=== PATIENT | female | born 1950 | race Caucasian/White ===

== ENCOUNTER 2018-01-03 08:44 | Outpatient (CLI) | payer MEDICARE | END 2018-01-03 23:59 | disposition short-term general hospital (02) | LOC: EMS 08:44 | PROVIDERS: ATTEND Surgery | DX: R53.1 Weakness (principal); R47.9 Unspecified speech disturbances; M79.89 Other specified soft tissue disorders | CPT/HCPCS: A0170; A0425; A0427 ==

== ENCOUNTER 2018-05-08 05:41 | Outpatient (CLI) | payer MEDICARE | END 2018-05-08 05:42 | disposition short-term general hospital (02) | LOC: EMS 05:41 | PROVIDERS: ATTEND Surgery | DX: Z03.89 Encounter for observation for other suspected diseases and conditions ruled out (principal); Z79.01 Long term (current) use of anticoagulants; W06.XXXA Fall from bed, initial encounter; Y92.003 Bedroom of unspecified non-institutional (private) residence as the place of occurrence of the external cause | CPT/HCPCS: A0425; A0429 ==

== ENCOUNTER 2018-05-18 12:05 | Outpatient (CLI) | payer MEDICARE ==
[2018-05-18 18:03] LABS: CALCIUM 9.3 mg/dL (8.5-10.3); CREATININE 1.3 mg/dL (0.4-1.0)
== END 2018-05-18 12:06 | disposition home or self-care (01) ==
LOC: LAB.R 12:05
PROVIDERS: ATTEND Family Medicine
DX: E11.9 Type 2 diabetes mellitus without complications (principal)
CPT/HCPCS: 80048

== ENCOUNTER 2018-06-16 08:00 | Outpatient (CLI) | payer MEDICARE ==
[2018-06-16 17:19] LABS: BILIRUBIN,URINE NEGATIVE (NEGATIVE); GLUCOSE, URINE (UA) NEGATIVE (NEGATIVE); KETONES,URINE (UA) NEGATIVE (NEGATIVE); LEUKOCYTE ESTERASE, URINE SMALL (NEGATIVE); NITRITE,URINE NEGATIVE (NEGATIVE); OCCULT BLOOD,URINE TRACE-LYSE (NEGATIVE); PH,URINE 5.5 PH (5.0-7.5); PROTEIN,URINE 30 mg/dL (NEGATIVE); UROBILINOGEN,URINE 0.2 (NORMAL) E.U./dL (NORMAL)
[2018-06-16 17:54] LABS: CLARITY,URINE CLOUDY (CLEAR)
[2018-06-16 18:03] LABS: BACTERIA,URINE Many /HPF (None Seen); SQUAMOUS EPITHELIAL CELL,UR NONE SEEN (<= Few); WBC CLUMPS,URINE PRESENT
== END 2018-06-16 23:59 | disposition home or self-care (01) ==
LOC: LAB.R 08:00
PROVIDERS: ATTEND Family Medicine
DX: N39.0 Urinary tract infection, site not specified (principal)
CPT/HCPCS: 81001; 81003; 87077; 87086; 87181

== ENCOUNTER 2018-06-22 08:00 | Outpatient (CLI) | payer MEDICARE | END 2018-06-22 23:59 | disposition home or self-care (01) | LOC: LAB.R 08:00 | PROVIDERS: ATTEND Physician Assistant | DX: E87.5 Hyperkalemia (principal) | CPT/HCPCS: 84132 ==

== ENCOUNTER 2018-07-08 10:59 | Outpatient (CLI) | payer MEDICARE | END 2018-07-08 11:00 | disposition EMS.NT | LOC: EMS 10:59 | PROVIDERS: ATTEND Surgery | DX: R73.9 Hyperglycemia, unspecified (principal) ==

== ENCOUNTER 2018-08-11 08:00 | Outpatient (CLI) | payer MEDICARE ==
[2018-08-11 17:38] LABS: BILIRUBIN,URINE NEGATIVE (NEGATIVE); GLUCOSE, URINE (UA) NEGATIVE (NEGATIVE); KETONES,URINE (UA) NEGATIVE (NEGATIVE); LEUKOCYTE ESTERASE, URINE SMALL (NEGATIVE); NITRITE,URINE POSITIVE (NEGATIVE); OCCULT BLOOD,URINE MODERATE (NEGATIVE); PH,URINE 5.5 PH (5.0-7.5); PROTEIN,URINE NEGATIVE (NEGATIVE); UROBILINOGEN,URINE 0.2 (NORMAL) E.U./dL (NORMAL)
[2018-08-11 17:45] LABS: CLARITY,URINE CLEAR (CLEAR)
[2018-08-11 17:55] LABS: BACTERIA,URINE Rare /HPF (None Seen); CASTS, URINE >50 Hyaline Casts /LPF; SQUAMOUS EPITHELIAL CELL,UR FEW Squamous (<= Few)
== END 2018-08-11 23:59 | disposition home or self-care (01) ==
LOC: LAB.R 08:00
PROVIDERS: ATTEND Family Medicine
DX: N39.0 Urinary tract infection, site not specified (principal)
CPT/HCPCS: 81001; 81003; 87077; 87086; 87181

== ENCOUNTER 2018-09-06 15:30 | Outpatient (CLI) | payer MEDICARE ==
[2018-09-06 18:00] LABS: HGB - HEMOGLOBIN 10.3 g/dL (12.0-16.0); MEAN CORPUSCULAR HEMOGLOBIN 25.8 pg (27.0-31.0); MEAN CORPUSCULAR HGB CONC 31.8 g/dL (32.0-36.0); MEAN CORPUSCULAR VOLUME 81.1 fL (81.0-99.0); MEAN PLATELET VOLUME 8.7 fL (7.9-10.8); WHITE BLOOD COUNT 7.1 x10^3/uL (4.8-10.8)
[2018-09-06 18:07] LABS: PT - PROTHROMBIN TIME 94.4 secs (9.9-12.6)
[2018-09-06 18:21] LABS: INR 8.5 (0.8-1.2)
== END 2018-09-06 23:59 | disposition home or self-care (01) ==
LOC: LAB.R 15:30
PROVIDERS: ATTEND Family Medicine
DX: I48.2 Chronic atrial fibrillation (principal)
CPT/HCPCS: 85027; 85610

== ENCOUNTER 2018-10-25 01:10 | Outpatient (CLI) | payer MEDICARE | END 2018-10-25 01:11 | disposition EMS.NT | LOC: EMS 01:10 | PROVIDERS: ATTEND Surgery | DX: Z03.89 Encounter for observation for other suspected diseases and conditions ruled out (principal) ==

== ENCOUNTER 2018-11-19 08:00 | Outpatient (CLI) | payer MEDICARE ==
[2018-11-19 16:03] LABS: ALBUMIN 3.5 g/dL (3.2-5.5); CALCIUM 9.2 mg/dL (8.5-10.3); CREATININE 1.6 mg/dL (0.4-1.0); PHOSPHORUS 3.9 mg/dL (2.5-4.6)
== END 2018-11-19 23:59 | disposition home or self-care (01) ==
LOC: LAB.R 08:00
PROVIDERS: ATTEND Family Medicine
DX: N17.9 Acute kidney failure, unspecified (principal)
CPT/HCPCS: 80069

== ENCOUNTER 2019-01-19 12:00 | Outpatient (CLI) | payer MEDICARE ==
[2019-01-19 17:40] LABS: INR 4.1 (0.8-1.2); PT - PROTHROMBIN TIME 45.8 secs (9.9-12.6)
== END 2019-01-19 23:59 | disposition home or self-care (01) ==
LOC: LAB.R 12:00
PROVIDERS: ATTEND Physician Assistant
DX: Z51.81 Encounter for therapeutic drug level monitoring (principal)
CPT/HCPCS: 85610

== ENCOUNTER 2019-02-15 13:30 | Outpatient (CLI) | payer MEDICARE ==
[2019-02-15 17:54] LABS: BILIRUBIN,URINE NEGATIVE (NEGATIVE); GLUCOSE, URINE (UA) NEGATIVE (NEGATIVE); KETONES,URINE (UA) NEGATIVE (NEGATIVE); LEUKOCYTE ESTERASE, URINE SMALL (NEGATIVE); NITRITE,URINE NEGATIVE (NEGATIVE); OCCULT BLOOD,URINE SMALL (NEGATIVE); PROTEIN,URINE NEGATIVE (NEGATIVE); UROBILINOGEN,URINE 0.2 (NORMAL) E.U./dL (NORMAL)
[2019-02-15 17:55] LABS: CLARITY,URINE CLEAR (CLEAR)
[2019-02-15 18:08] LABS: AMORPHOUS SEDIMENT,UR Few /LPF; BACTERIA,URINE None Seen /HPF (None Seen); RBC,URINE None Seen /HPF (0-5); SQUAMOUS EPITHELIAL CELL,UR FEW Squamous (<= Few)
[2019-02-15 18:09] LABS: CASTS, URINE 0-2 Hyaline Casts /LPF
== END 2019-02-15 23:59 | disposition home or self-care (01) ==
LOC: LAB.R 13:30
PROVIDERS: ATTEND Physician Assistant
DX: N39.0 Urinary tract infection, site not specified (principal)
CPT/HCPCS: 81001; 81003; 87077; 87086; 87181

== ENCOUNTER 2019-03-08 09:36 | Outpatient (CLI) | payer MEDICARE | END 2019-03-08 09:37 | disposition EMS.NT | LOC: EMS 09:36 | PROVIDERS: ATTEND Surgery | DX: Z03.89 Encounter for observation for other suspected diseases and conditions ruled out (principal) ==

== ENCOUNTER 2019-05-31 08:46 | Outpatient (CLI) | payer MEDICARE | END 2019-05-31 08:47 | disposition short-term general hospital (02) | LOC: EMS 08:46 | PROVIDERS: ATTEND Surgery | DX: S09.90XA Unspecified injury of head, initial encounter (principal); W05.0XXA Fall from non-moving wheelchair, initial encounter; Y93.K9 Activity, other involving animal care; Y92.009 Unspecified place in unspecified non-institutional (private) residence as the place of occurrence of the external cause; Z79.01 Long term (current) use of anticoagulants | CPT/HCPCS: A0425; A0429 ==

== ENCOUNTER 2019-07-27 02:33 | Outpatient (CLI) | payer MEDICARE | END 2019-07-27 02:34 | disposition critical access hospital (66) | LOC: EMS 02:33 | PROVIDERS: ATTEND Surgery | DX: S01.111A Laceration without foreign body of right eyelid and periocular area, initial encounter (principal); S01.411A Laceration without foreign body of right cheek and temporomandibular area, initial encounter; S01.21XA Laceration without foreign body of nose, initial encounter; W06.XXXA Fall from bed, initial encounter; Y92.003 Bedroom of unspecified non-institutional (private) residence as the place of occurrence of the external cause | CPT/HCPCS: A0425; A0429 ==

== ENCOUNTER 2019-07-27 03:11 | Emergency (ER) | payer MEDICARE ==
[2019-07-27 03:34] LABS: BILIRUBIN,URINE NEGATIVE (NEGATIVE); GLUCOSE, URINE (UA) 250 mg/dL (NEGATIVE); KETONES,URINE (UA) NEGATIVE (NEGATIVE); LEUKOCYTE ESTERASE, URINE LARGE (NEGATIVE); NITRITE,URINE NEGATIVE (NEGATIVE); OCCULT BLOOD,URINE SMALL (NEGATIVE); PROTEIN,URINE TRACE mg/dL (NEGATIVE); UROBILINOGEN,URINE 0.2 (NORMAL) E.U./dL (NORMAL)
[2019-07-27 03:35] LABS: CLARITY,URINE HAZY (CLEAR)
[2019-07-27 03:39] LABS: BASOPHILS % (AUTO) 0.5 %; EOSINOPHILS # (AUTO) 0.2 10^3/uL (0.0-0.7); HGB - HEMOGLOBIN 9.2 g/dL (12.0-16.0); LYMPHOCYTES # (AUTO) 1.3 10^3/uL (1.5-3.5); LYMPHOCYTES % (AUTO) 17.5 %; MEAN CORPUSCULAR HEMOGLOBIN 24.5 pg (27.0-31.0); MEAN CORPUSCULAR HGB CONC 29.5 g/dL (32.0-36.0); MEAN PLATELET VOLUME 10.1 fL (7.9-10.8); MONOCYTES # (AUTO) 0.9 10^3/uL (0.0-1.0); MONOCYTES % (AUTO) 12.4 %; NEUTROPHILS # (AUTO) 4.9 10^3/uL (1.5-6.6); NEUTROPHILS % (AUTO) 66.2 %; PLT - PLATELET COUNT 238 10^3/uL (130-450); RED BLOOD COUNT 3.76 10^6/uL (4.20-5.40); RED CELL DISTRIBUTION WIDTH 15.8 % (12.0-15.0); WHITE BLOOD COUNT 7.4 x10^3/uL (4.8-10.8)
[2019-07-27 03:40] LABS: BACTERIA,URINE Many /HPF (None Seen); RBC,URINE 0-5 /HPF (0-5); SQUAMOUS EPITHELIAL CELL,UR FEW Squamous (<= Few)
[2019-07-27 03:45] LABS: INR 3.3 (0.8-1.2); PT - PROTHROMBIN TIME 34.9 secs (9.9-12.6)
--- NOTE | 2019-07-27 03:49 | ED Physician Documentation ---
PD HPI HEAD INJURY - Stated complaint Stated Complaint: GLF/ HEAD INJ - Chief complaint Chief Complaint: Trauma Hd/Nk - History obtained from History obtained from: Patient, Family, EMS - History of Present Illness Mechanism of head injury: Fell Where head injury occurred: Home Timing - onset: Today Location of injury: Right, Front Quality of pain: Pain, Throbbing Associated symptoms: Other (facial trauma). No: LOC, AMS, Amnesia, Nausea / vomiting, Neck pain, Paresthesias, Seizures, Ear drainage, Nasal drainage Symptoms improve with: Rest Symptoms worsen with: Palpation, Movement Contributing factors: Anticoagulated (fall) Similar symptoms before: Diagnosis Recently seen: Clinic - Additional information Additional information: 69-year-old female who has had a CVA with left lisset-paresis is being taken care of by her in her home. She has a history of congestive heart failure, atrial fibrillation, diabetes on insulin and she is on Coumadin. She does have a Elliott catheter in place and her legs are wrapped and she has a history of cellulitis as well. She was in her bed this evening she rolled over and fell out of the bed and hit her right face on the nightstand. She denies any loss of consciousness with this she denies any neck pain she denies any headache. She does have lacerations to her face and a lot of swelling to the right eye. She is able to see out of the eye the eye is now swollen shut. She denies any recent illness does state that she goes to the wound clinic weekly regarding her legs which are raw. She states they have not started her on antibiotics for the cellulitis. She also states they have not started on antibiotics for urinary tract infection. She is not sure why. The is uncertain why. She has had the Elliott catheter in place for about 6 months and last had the catheter changed out about 2 weeks ago. She last saw her primary care doctor 2 weeks ago for routine check. She is on Coumadin. She has atrial fibrillation. Review of Systems Constitutional: denies: Fever, Myalgias, Fatigue Eyes: denies: Decreased vision Ears: denies: Ear pain Nose: denies: Rhinorrhea / runny nose, Congestion Throat: denies: Sore throat Cardiac: denies: Chest pain / pressure, Palpitations Respiratory: denies: Dyspnea, Cough GI: denies: Abdominal Pain, Nausea, Vomiting Skin: reports: Rash Musculoskeletal: reports: Extremity pain. denies: Neck pain, Back pain Neurologic: reports: Generalized weakness, Focal weakness, Head injury. denies: Difficulty speaking, Syncope, Seizure, Headache, LOC PD PAST MEDICAL HISTORY - Present Medications Home Medications: Ambulatory Orders Medication Instructions Recorded Confirmed Cefdinir 300 mg PO BID #14 capsule 07/27/19 Docusate Sodium 100 mg BID 07/27/19 07/27/19 Fluticasone [Flonase] 2 sprays DAILY 07/27/19 07/27/19 Insulin Lispro 8 units TID 07/27/19 07/27/19 Insulin NPH Human Isophane 50 units BID 07/27/19 07/27/19 [Humulin N] Isosorbide Dinitrate 40 mg DAILY 07/27/19 07/27/19 Lisinopril [Zestril] 40 mg DAILY 07/27/19 07/27/19 Magnesium Oxide [Mag Ox] 2 tab DAILY 07/27/19 07/27/19 Methocarbamol [Robaxin-750] 2 tab TID 07/27/19 07/27/19 Nystatin 5 ml QID 07/27/19 07/27/19 Oxycodone HCl/Acetaminophen 1 tab TID PRN 07/27/19 07/27/19 [Percocet 5-325 mg Tablet] Pramipexole Di-HCl [Mirapex] 1 mg DAILY PM 07/27/19 07/27/19 Salmeterol Xinafoate [Serevent 1 puffs BID 07/27/19 07/27/19 Diskus] Sertraline [Zoloft] 25 mg DAILY 07/27/19 07/27/19 Spironolactone 25 mg DAILY 07/27/19 07/27/19 Triamcinolone 0.5% Cream [Kenalog 1 applic DAILY 07/27/19 07/27/19 0.5% Cream] Warfarin [Coumadin] 2 mg DAILY 07/27/19 07/27/19 amLODIPine [Norvasc] 10 mg DAILY 07/27/19 07/27/19 hydrALAZINE [Apresoline] 25 mg TID 07/27/19 07/27/19 - Allergies Allergies/Adverse Reactions: Allergies Allergy/AdvReac Type Severity Reaction Status Date / Time gabapentin Allergy Edema Verified 07/27/19 04:54 guaifenesin Allergy Unknown Verified 07/27/19 04:54 hydrocodone Allergy Itching Verified 07/27/19 04:54 nortriptyline Allergy Unknown Verified 07/27/19 04:21 NSAIDS (Non-Steroidal Allergy Edema Verified 07/27/19 04:54 Anti-Inflamma Sulfa (Sulfonamide Allergy Respiratory Verified 07/27/19 04:54 Antibiotics) trimethoprim Allergy Respiratory Verified 07/27/19 04:54 zolpidem Allergy Respiratory Verified 07/27/19 04:54 PD ED PE NORMAL - Vitals Vital signs reviewed: Yes (hypertensive ) - General General: Alert and oriented X 3, Well developed/nourished, Other - HEENT HEENT: PERRL, EOMI, Other (There is facial trauma that is evident with a laceration to the lateral aspect of the face at the corner of the right eye there is swelling to the right periorbital tissues swelling the shot. There is tenderness to the cheek and a laceration over the anterior cheek as well.) - Neck Neck: Supple, no meningeal sign, Other (mild bony tenderness mid C-spine ) - Cardiac Cardiac: Other (Irregularly irregular rate and rhythm with a 2 out of 6 holosystolic murmur at the left sternal border.) - Respiratory Respiratory: No respiratory distress, Clear bilaterally - Abdomen Abdomen: Soft, Non tender - Back Back: No CVA TTP, No spinal TTP - Derm Derm: Normal color, Warm and dry - Extremities Extremities: Other (Both lower extremities are wrapped in the wrapping appears clean. The legs above and below the wrapping are erythematous with blanching consistent with cellulitis) - Neuro Neuro: No sensory deficit, Other (There is a left hemiparesis ) Eye Opening: Spontaneous Motor: Obeys Commands Verbal: Oriented GCS Score: 15 - Psych Psych: Normal mood, Normal affect Results - Vitals Vitals: Vital Signs - 24 hr 07/27/19 03:11 Temperature 36.9 C Heart Rate 72 Respiratory 18 Rate Blood Pressure 136/69 H O2 Saturation 95 Oxygen O2 Source Room air - Labs Labs: Laboratory Tests 07/27/19 07/27/19 07/27/19 03:20 03:30 03:30 WBC 7.4 RBC 3.76 L Hgb 9.2 L Hct 31.2 L MCV 83.0 MCH 24.5 L MCHC 29.5 L RDW 15.8 H Plt Count 238 MPV 10.1 Neut # (Auto) 4.9 Lymph # (Auto) 1.3 L [place] # (Auto) 0.9 Eos # (Auto) 0.2 Baso # (Auto) 0.0 Absolute Nucleated RBC 0.00 Nucleated RBC % 0.0 PT 34.9 H INR 3.3 H Sodium Potassium Chloride Carbon Dioxide Anion Gap BUN Creatinine Estimated GFR (MDRD) Glucose Calcium Total Bilirubin AST ALT Alkaline Phosphatase Total Protein Albumin Globulin Albumin/Globulin Ratio Lipase Urine Color YELLOW Urine Clarity HAZY Urine pH 6.0 Ur Specific [place] 1.020 Urine Protein TRACE Urine Glucose (UA) 250 H Urine Ketones NEGATIVE Urine Occult Blood SMALL H Urine Nitrite NEGATIVE Urine Bilirubin NEGATIVE Urine Urobilinogen 0.2 (NORMAL) Ur Leukocyte Esterase LARGE H Urine RBC 0-5 Urine WBC 11-25 H Ur Squamous Epith Cells FEW Squamous Urine Bacteria Many H Ur Microscopic Review INDICATED Urine Culture Comments INDICATED 07/27/19 03:30 WBC RBC Hgb Hct MCV MCH MCHC RDW Plt Count MPV Neut # (Auto) Lymph # (Auto) [place] # (Auto) Eos # (Auto) Baso # (Auto) Absolute Nucleated RBC Nucleated RBC % PT INR Sodium 133 L Potassium 5.3 H Chloride 101 Carbon Dioxide 24 Anion Gap 8.0 BUN 37 H Creatinine 1.3 H Estimated GFR (MDRD) 41 L Glucose 373 H Calcium 9.2 Total Bilirubin 0.6 AST 18 ALT 14 Alkaline Phosphatase 104 Total Protein 7.6 Albumin 3.2 Globulin 4.4 H Albumin/Globulin Ratio 0.7 L Lipase 32 Urine Color Urine Clarity Urine pH Ur Specific [place] Urine Protein Urine Glucose (UA) Urine Ketones Urine Occult Blood Urine Nitrite Urine Bilirubin Urine Urobilinogen Ur Leukocyte Esterase Urine RBC Urine WBC Ur Squamous Epith Cells Urine Bacteria Ur Microscopic Review Urine Culture Comments - Rads (name of study) maxillofacial ct Radiology: Prelim report reviewed (Impression: Right periorbital hematoma. No evidence of acute fracture.), EMP read indepedently, See rad report ct head w/o Radiology: Prelim report reviewed (Impression: 1. No acute intracranial hemorrhage, skull fracture, or other acute intracranial abnormality. 2. Right periorbital and mid facial soft tissue swelling/hematoma. 3. Senescent changes of the brain.), EMP read indepedently, See rad report CT cervical spine Radiology: Prelim report reviewed (Pression: 1. No evidence of cervical spine fracture. 2. Mild bilateral supraclavicular adenopathy.), EMP read indepedently, See rad report Procedures - Laceration (location) face Length in cm: 3 Wound type: Curved, Flap, Superficial Neurovascular status: Sensory intact, Motor intact, Vascular intact Anesthesia: Lidocaine 1%, With bicarb Wound Preparation: Hibiclens, Irrigated copiously NS, Wound explored, To the base Skin layer closure: Nylon, Interrupted, Size #-0 - enter number (6-06), Sutures - enter # Other: Patient tolerated well, No complications, Neurovascular intact, Dressing applied Complexity: Simple - IVC sono (time) 0400 Bedside IVC sono: IVC measures (cm) (1.8), Euvolemia PD MEDICAL DECISION MAKING - ED course Complexity details: reviewed old records, reviewed results, re-evaluated patient, considered differential, d/w patient, d/w family ED course: 69-year-old female with a history of CVA with left hemiparesis and atrial fibrillation on Coumadin has had a fall at her home with a facial contusion and swelling with lacerations to the cheek and the right periorbital tissues. Laceration to the cheek is a skin avulsion with attached flap and this is spread out to cover the defect and Dermabond is used over the top. The eye laceration is sutured. Patient has no evidence of fracture to the cervical spine or face and has no intracranial hemorrhage. She does have urinary tract infection and looks to have cellulitis as well white blood cell count is normal her blood sugars are elevated. Her volume status is normal and I do not believe fluid resuscitation is necessary. Hospitalization is not indicated. She is administered 6 units of regular insulin subcu for the sugar of 390. We have administered Rocephin 1 g intramuscularly and will place the patient on a course of cefdinir for both the cellulitis and the urinary tract infection. She will have follow-up with her primary in 6 days. Departure - Departure Disposition: Home, Self Care Clinical Impression: Facial contusion Qualifiers: Encounter type: initial encounter Qualified Code(s): S00.83XA - Contusion of other part of head, initial encounter Face lacerations Qualifiers: Encounter type: initial encounter Qualified Code(s): S01.81XA - Laceration without foreign body of other part of head, initial encounter UTI (urinary tract infection) Qualifiers: Urinary tract infection type: catheter-associated UTI Indwelling urinary catheter type: indwelling urethral catheter Encounter type: initial encounter Qualified Code(s): T83.511A - Infection and inflammatory reaction due to indwelling urethral catheter, initial encounter; N39.0 - Urinary tract infection, site not specified Cellulitis Qualifiers: Site of cellulitis: extremity Site of cellulitis of extremity: lower extremity Laterality: unspecified laterality Qualified Code(s): L03.119 - Cellulitis of unspecified part of limb Condition: Stable Instructions: ED Infec Skin Cellulitis, ED UTI Cystitis Female, ED Laceration Facial Skin Glue, ED Laceration Facial Sutr Tape Follow-Up: Cipriano Rush PA [Primary Care Provider] - Prescriptions: Cefdinir 300 mg PO BID #14 capsule Comments: Follow-up with your regular doctor next week for removal of the stitches to the right eyelid.You have been given an antibiotic and you will need to have your INR rechecked in about 1 week.
[2019-07-27 03:55] LABS: ALBUMIN 3.2 g/dL (3.2-5.5); ALBUMIN/GLOBULIN RATIO 0.7 (1.0-2.2); BILIRUBIN,TOTAL 0.6 mg/dL (0.2-1.0); CALCIUM 9.2 mg/dL (8.5-10.3); CREATININE 1.3 mg/dL (0.4-1.0); TOTAL PROTEIN 7.6 g/dL (6.7-8.2)
--- NOTE | 2019-07-27 04:04 | CT Report ---
Reason: head injury coumadin Procedure Date: 07/27/2019 Accession Number: [id number] / [id number] Procedure: CT - HEAD WO CPT Code: Final Report FULL RESULT: EXAM: CT HEAD EXAM DATE: 07/27/2019 03:51 AM. CLINICAL HISTORY: Head injury, coumadin. COMPARISON: None. TECHNIQUE: Multiaxial CT images were obtained from the foramen magnum to the vertex. Reformats: Sagittal and coronal. IV contrast: None. In accordance with CT protocol optimization, one or more of the following dose reduction techniques were utilized for this exam: automated exposure control, adjustment of mA and/or KV based on patient size, or use of iterative reconstructive technique. FINDINGS: Parenchyma: No intraparenchymal hemorrhage. No evidence of mass, midline shift, or CT findings of acute large vessel territory infarction. Small chronic lacunar infarcts present in right basal ganglia with mild ex vacuo enlargement of the frontal horn of right lateral ventricle. Fabian-white differentiation is distinct. Mild chronic microangiopathic white matter changes are evident. Extraaxial Spaces: Normal for age. No subdural or epidural collections identified. Ventricles: The ventricles and cortical sulci are enlarged, consistent with age-related tissue loss. Sinuses and orbits: Imaged paranasal sinuses, orbits, and mastoids show no significant abnormality. Bones: No evidence of fracture or calvarial defect. Other: Right periorbital and midfacial soft tissue swelling/hematoma. IMPRESSION: 1. No acute intracranial hemorrhage, skull fracture, or other acute intracranial abnormality. 2. Right periorbital and midfacial soft tissue swelling/hematoma. 3. Senescent changes of the brain. RADIA
--- NOTE | 2019-07-27 04:08 | CT Report ---
Reason: facial trauma Procedure Date: 07/27/2019 Accession Number: [id number] / [id number] Procedure: CT - MAXILLOFACIAL WO CPT Code: Final Report FULL RESULT: EXAM: CT MAXILLOFACIAL WITHOUT CONTRAST EXAM DATE: 07/27/2019 03:52 AM. CLINICAL HISTORY: Facial trauma. COMPARISONS: HEAD W/O 07/27/2019 3:40 AM. TECHNIQUE: Thin-section axial images were acquired of the face without contrast. Post-processing: Coronal and sagittal reformats. Other: None. In accordance with CT protocol optimization, one or more of the following dose reduction techniques were utilized for this exam: automated exposure control, adjustment of mA and/or KV based on patient size, or use of iterative reconstructive technique. FINDINGS: Soft Tissue: Right periorbital hematoma, without evidence of intraorbital extension. Orbits: Symmetric and unremarkable. Bones: No fracture or bone lesion. Temporomandibular Joints: The temporomandibular joints are symmetric and normally located. Sinuses: Normal. No mucosal thickening or fluid levels. Other: None. IMPRESSION: Right periorbital hematoma. No evidence of acute fracture. RADIA
[2019-07-27] MEDS ORDERED: BUFFERED LIDOCAINE 10 ML SYRINGE SUBQ STA (04:11)
[2019-07-27] MEDS ORDERED: INSULIN REGULAR HUMAN 100 UNIT/1 ML 10 ML MDV SUBQ STA (04:19)
--- NOTE | 2019-07-27 04:19 | CT Report ---
Reason: head injury Procedure Date: 07/27/2019 Accession Number: [id number] / [id number] Procedure: CT - CERVICAL SPINE WO CPT Code: Final Report FULL RESULT: EXAM: CT CERVICAL SPINE WITHOUT CONTRAST DATE: 07/27/2019 03:54 AM. HISTORY: Fall, head injury COMPARISONS: None. TECHNIQUE: Thin-section axial images were acquired of the cervical spine without contrast. Post-processing: Coronal and sagittal reformats. Other: None. In accordance with CT protocol optimization, one or more of the following dose reduction techniques were utilized for this exam: automated exposure control, adjustment of mA and/or KV based on patient size, or use of iterative reconstructive technique. FINDINGS: Alignment: There is cervicothoracic levoscoliosis. Bones: No fracture or bone lesion. Interspace Levels/Facets: C1-C2: Unremarkable. C2-C3: Disk unremarkable. Moderate right facet hypertrophy. No central canal narrowing. Moderate right neural foraminal narrowing. C3-C4: Disk unremarkable. Mild bilateral facet hypertrophy. No central canal or neural foraminal narrowing. C4-C5: Disk unremarkable. Moderate right facet hypertrophy. No central canal or neural foraminal narrowing. C5-C6: Disk unremarkable. Mild left facet hypertrophy. No central canal or neural foraminal narrowing. C6-C7: There is disk height loss and there is a disk osteophyte complex with mild central canal narrowing. There is uncovertebral osteophytosis with severe right neural foraminal narrowing. C7-T1: Unremarkable. Musculature: Normal. No fatty atrophy. Other: Mild prominence of supraclavicular lymph nodes bilaterally measuring up to 11 mm on the right. The lung apices are clear. There are prominent vascular calcifications. IMPRESSION: No. 1. No evidence of cervical spine fracture. 2. Mild bilateral supraclavicular adenopathy. RADIA
[2019-07-27] MEDS ORDERED: LIDOCAINE 1% 2 ML VIAL MC ONE (04:59)
[2019-07-27] MEDS ORDERED: cefTRIAXone 1 GM VIAL IM STA (04:59)
[2019-07-27] MEDS ORDERED: TETANUS/DIPHTHERIA/PERTUSSIS 0.5 ML SYRINGE IM ONE (05:05)
[2019-07-27 05:34] VITALS: BP 137/53
== END 2019-07-27 05:49 | disposition home or self-care (01) ==
LOC: EDUNIT# → ED 03:11
DX: S01.411A Laceration without foreign body of right cheek and temporomandibular area, initial encounter (principal); S01.81XA Laceration without foreign body of other part of head, initial encounter; S00.83XA Contusion of other part of head, initial encounter; W06.XXXA Fall from bed, initial encounter; Y93.89 Activity, other specified; Y92.003 Bedroom of unspecified non-institutional (private) residence as the place of occurrence of the external cause; Z23 Encounter for immunization; T83.511A Infection and inflammatory reaction due to indwelling urethral catheter, initial encounter; N39.0 Urinary tract infection, site not specified; Y84.6 Urinary catheterization as the cause of abnormal reaction of the patient, or of later complication, without mention of misadventure at the time of the procedure; L03.116 Cellulitis of left lower limb; L03.115 Cellulitis of right lower limb; M25.78 Osteophyte, vertebrae; E11.65 Type 2 diabetes mellitus with hyperglycemia; Z79.4 Long term (current) use of insulin; I69.354 Hemiplegia and hemiparesis following cerebral infarction affecting left non-dominant side; R01.1 Cardiac murmur, unspecified; I48.91 Unspecified atrial fibrillation; Z79.01 Long term (current) use of anticoagulants; I50.9 Heart failure, unspecified
CPT/HCPCS: 12013; 36415; 70450; 70486; 72125; 80053; 81001; 83690; 85025; 85610; 87077; 87086; 87181; 90471; 90715; 96372; 99284; J1815; 81003

== ENCOUNTER 2019-08-02 14:34 | Emergency (ER) | payer MEDICARE ==
[2019-08-02 14:52] VITALS: BP 138/65
--- NOTE | 2019-08-07 14:07 | ED Physician Documentation ---
History of Present Illness - Stated complaint Stated Complaint: STITCH REMOVAL - Chief complaint Chief Complaint: General - History obtained from History obtained from: Patient - History of Present Illness Timing: How many days ago (6) - Additonal information Additional information: Patient returns for removal of stitches placed 6 days ago in R eyebrow from a f all. Wound is healing without any concerns. Review of Systems Constitutional: denies: Fever Skin: reports: Abrasion (s) (R cheek), Laceration (s) (R eyebrow) PD PAST MEDICAL HISTORY - Present Medications Home Medications: Ambulatory Orders Medication Instructions Recorded Confirmed Cefdinir 300 mg PO BID #14 capsule 07/27/19 Docusate Sodium 100 mg BID 07/27/19 07/27/19 Fluticasone [Flonase] 2 sprays DAILY 07/27/19 07/27/19 Insulin Lispro 8 units TID 07/27/19 07/27/19 Insulin NPH Human Isophane 50 units BID 07/27/19 07/27/19 [Humulin N] Isosorbide Dinitrate 40 mg DAILY 07/27/19 07/27/19 Lisinopril [Zestril] 40 mg DAILY 07/27/19 07/27/19 Magnesium Oxide [Mag Ox] 2 tab DAILY 07/27/19 07/27/19 Methocarbamol [Robaxin-750] 2 tab TID 07/27/19 07/27/19 Nystatin 5 ml QID 07/27/19 07/27/19 Oxycodone HCl/Acetaminophen 1 tab TID PRN 07/27/19 07/27/19 [Percocet 5-325 mg Tablet] Pramipexole Di-HCl [Mirapex] 1 mg DAILY PM 07/27/19 07/27/19 Salmeterol Xinafoate [Serevent 1 puffs BID 07/27/19 07/27/19 Diskus] Sertraline [Zoloft] 25 mg DAILY 07/27/19 07/27/19 Spironolactone 25 mg DAILY 07/27/19 07/27/19 Triamcinolone 0.5% Cream [Kenalog 1 applic DAILY 07/27/19 07/27/19 0.5% Cream] Warfarin [Coumadin] 2 mg DAILY 07/27/19 07/27/19 amLODIPine [Norvasc] 10 mg DAILY 07/27/19 07/27/19 hydrALAZINE [Apresoline] 25 mg TID 07/27/19 07/27/19 - Allergies Allergies/Adverse Reactions: Allergies Allergy/AdvReac Type Severity Reaction Status Date / Time gabapentin Allergy Edema Verified 08/02/19 14:48 guaifenesin Allergy Unknown Verified 08/02/19 14:48 hydrocodone Allergy Itching Verified 08/02/19 14:48 nortriptyline Allergy Unknown Verified 08/02/19 14:48 NSAIDS (Non-Steroidal Allergy Edema Verified 08/02/19 14:48 Anti-Inflamma Sulfa (Sulfonamide Allergy Respiratory Verified 08/02/19 14:48 Antibiotics) trimethoprim Allergy Respiratory Verified 08/02/19 14:48 zolpidem Allergy Respiratory Verified 08/02/19 14:48 PD ED PE NORMAL - Vitals Vital signs reviewed: Yes - General General: Alert and oriented X 3, No acute distress, Well developed/nourished - HEENT HEENT: Other (Scabbed/healing laceration to R eyebrow/eyelid. No evidence of infection. Scabbing to R cheek from healing abrasion. Yellow, brown bruising to R side of face) Results - Vitals Vitals: Oxygen O2 Source Room air PD MEDICAL DECISION MAKING - ED course ED course: Sutures removed per nursing staff. Patient will continue to keep clean and watch for infection. Departure - Departure Disposition: Home, Self Care Clinical Impression: Encounter for removal of sutures Condition: Good Discharge Date/Time: 08/02/19 15:25
== END 2019-08-02 15:25 | disposition home or self-care (01) ==
LOC: ED 14:34
DX: S01.111D Laceration without foreign body of right eyelid and periocular area, subsequent encounter (principal); W19.XXXD Unspecified fall, subsequent encounter
CPT/HCPCS: 99281

== ENCOUNTER 2019-09-10 01:37 | Outpatient (CLI) | payer MEDICARE | END 2019-09-10 01:38 | disposition EMS.NT | LOC: EMS 01:37 | PROVIDERS: ATTEND Surgery | DX: R53.1 Weakness (principal) ==

== ENCOUNTER 2020-02-20 10:42 | Outpatient (CLI) | payer MEDICARE | END 2020-02-20 10:43 | disposition critical access hospital (66) | LOC: EMS 10:42 | PROVIDERS: ATTEND Surgery | DX: R53.83 Other fatigue (principal); R63.1 Polydipsia; R73.09 Other abnormal glucose | CPT/HCPCS: A0425; A0427 ==

== ENCOUNTER 2020-02-22 07:55 | Outpatient (CLI) | payer MEDICARE | END 2020-02-22 07:56 | disposition short-term general hospital (02) | LOC: EMS 07:55 | PROVIDERS: ATTEND Surgery | DX: R53.1 Weakness (principal); R47.81 Slurred speech; R73.09 Other abnormal glucose | CPT/HCPCS: A0425; A0427 ==